=== PATIENT | female | born 1950 | race Caucasian/White ===

== ENCOUNTER 2024-01-11 22:07 | Emergency (ER) | payer MEDICARE, BC ==
[~2024-01-11] VITALS: Ht 172.7 cm; Wt 71.2 kg
[2024-01-11] MEDS ORDERED: GELATIN SPONGE,ABSORBABLE 1 EA SPONGE TP ONE ×2 (22:53→23:01)
[2024-01-11] MEDS ORDERED: GELATIN SPONGE,ABSORBABLE 1 SPONGE SPONGE TP ONE (22:56)
[2024-01-12 00:17] VITALS: BP 122/78; TEMP 97.8; O2SAT 99
== END 2024-01-12 00:18 | disposition home or self-care (01) ==
LOC: ER 22:10
DX: M96.831 Postprocedural hemorrhage of a musculoskeletal structure following other procedure (principal); E11.9 Type 2 diabetes mellitus without complications
CPT/HCPCS: 12001; 99283; A6403